=== PATIENT | male | born 1955 | race Caucasian/White ===

== ENCOUNTER 2020-04-30 10:49 | Inpatient (IN) ==
--- NOTE | 2020-04-07 15:01 | PAT Medication Instructions ---
Medication Instructions Date of Service April 07, 2020 Home Medications ascorbic acid (vitamin C) 1,000 mg tablet 1 gm PO TID multivitamin 1 tab PO QAM DO NOT take the morning of surgery ascorbic acid (vitamin C) 1,000 mg tablet 1 gm PO TID multivitamin 1 tab PO QAM Other Notes If you have any questions please call us at [phone] or [phone] or [phone] or [phone]
--- NOTE | 2020-04-08 12:27 | Anesthesiology Consultation ---
Date of Service April 08, 2020 Assessment & Plan (1) Encounter for pre-operative examination: COVID Status: As of 04/08 assessment, patient denies travel to endemic area, known exposure/sick contacts, or symptoms of COVID19. Patient instructed that they and their household members must follow strict social distancing guidelines, wear a mask in public and avoid travel for 14 days prior to surgery. Preoperative COVID19 testing to be completed prior to surgery per surgeon's a rrangements. Patient made aware to self-isolate as much as possible between COVID testing and surgery. Chart Review Chart Review: Acceptable Risk for Surgery (pending surgeon ordered PCP clearance) and Patient seen in Pre Admission Testing Teaching & Discussion Instructed NPO after midnight before surgery, except medications with 15 cc of water. Medication instructions provided according to the PAT guidelines. History Surgery Operation Date: 04/30/20 08:40 Proposed Procedures p Left Total Shoulder Arthroplasty - Shailesh Aiken MD Height/Weight Height: 5 ft 11 in Weight: 91.7 kg Allergies Allergy/AdvReac Type Severity Reaction Status Date / Time No Known Allergies Allergy Verified 04/03/20 16:09 Medications Home Medications Medication Instructions Recorded Confirmed Last Taken ascorbic acid (vitamin C) 1,000 mg 1 gm PO TID tab 01/07/20 04/03/20 Unknown tablet multivitamin 1 tab PO QAM 01/07/20 04/03/20 Unknown Past Medical History Medical History Hearing loss Osteoarthritis of shoulders, bilateral Exercise / Class Metabolic Activity II 4-5 Yardwork/Stairs/Walk up hill Past Family History Family History Brother Lymphoma Father Heart disease Past Surgical History Surgical History H/O colonoscopy History of surgery on arm left- A CHILD FOR FRACTURE Past Anesthesia History No Hx of Anesthesia Complications and No Family Hx of Anesthesia Complications History of PONV No Hx of PONV and No Hx of Motion Sickness Social History Smoking Status: Never smoker Do You Dip or Chew Tobacco: No Hx Alcohol Use: Yes Alcohol type: beer and wine alcohol intake frequency: a few times a week Hx Substance Use: No Review of Systems Pt denies any recent chest pain, shortness of breath, palpitations, cough, fever, URI, or uncontrolled acid reflux. Physical Exam Vital Signs BP: 100/69 P: 76bpm SPO2: 97% RA T: 98.0 F R: 16 ENMT Mouth: no dental restorations, no chipped teeth and no loose teeth Thyromental Distance: > or= 3.5 Finger Breadths Mallampati Class: I Neck normal visual inspection; neck extension not limited Respiratory normal respiratory effort Auscultation: lungs clear to auscultation bilaterally Cardiovascular Rate/Rhythm: regular rate and regular rhythm Heart Sounds: no murmur Vessels: no carotid bruit Testing Laboratory Results 04/08/20 12:35 04/08/20 12:35 PT 10.9 Seconds (9.0-12.0) 04/08/20 12:35 INR 1.0 (0.9-1.1) 04/08/20 12:35 APTT 26.2 Seconds (21.0-31.0) 04/08/20 12:35 Hemoglobin A1c 4.8 % (4.5-5.6) 04/08/20 12:35 Urine Color Yellow 04/08/20 12:35 Urine Appearance Clear (Clear) 04/08/20 12:35 Urine pH 5.0 (4.5-7.5) 04/08/20 12:35 Ur Specific Wilson 1.022 (1.000-1.030) 04/08/20 12:35 Urine Protein Negative (Negative) 04/08/20 12:35 Urine Glucose (UA) Negative (Negative) 04/08/20 12:35 Urine Ketones Trace (Negative) H 04/08/20 12:35 Urine Nitrite Negative (Negative) 04/08/20 12:35 Ur Leukocyte Esterase Negative (Negative) 04/08/20 12:35 Blood Type A Positive 04/08/20 12:35 Antibody Screen NEGATIVE 04/08/20 12:35 Electrocardiogram Date: 04/08/20 Findings: + NSR @ (62bpm) *unconfirmed Chest X-Ray Date: 04/08/20 Findings: + NAD
--- NOTE | 2020-04-08 13:09 | XRay Report ---
XR chest Pre-admission PA/Lat CLINICAL HISTORY: Preoperative chest COMPARISON STUDY: No previous studies for comparison. FINDINGS: The cardiac and mediastinal contours are normal. There is no evidence of focal pulmonary co nsolidation. There is no evidence of failure. No pleural effusions are visualized.[ IMPRESSION: No active disease in the chest. ACT 112: Negative or not required by law. Electronically signed by: Randy Kirby M.D. 04/08/2020 1:08 PM
[2020-04-08 14:12] LABS: Appearance Urine Clear (Clear); Bilirubin Urine Negative (Negative); Blood Urine Negative (Negative); Color Urine Yellow; Glucose Urine UA Negative (Negative); Ketones Urine Trace (Negative); Leukocyte Esterase Urine Negative (Negative); Nitrite Urine Negative (Negative); Protein Urine Negative (Negative); Specific Gravity Urine 1.022 (1.000-1.030); Urobilinogen Urine Negative (Negative)
[2020-04-08 14:16] LABS: Basophils # (auto) 0.02 K/uL (0-0.2); Basophils % (auto) 0.3 %; Eosinophils # (auto) 0.11 K/uL (0-0.5); Eosinophils % (auto) 1.6 %; Estimated Average Glucose 91 mg/dl; Hemoglobin 15.2 g/dL (14.0-18.0); Hemoglobin A1C 4.8 % (4.5-5.6); Immature Granulocytes # (auto) 0.03 K/uL (0.00-0.02); Immature Granulocytes % (auto) 0.4 %; Lymphocytes % (auto) 28.4 %; Mean Corpuscular Hemoglobin 31.9 pg (25-34); Mean Corpuscular Hgb Conc 35.3 g/dL (32-36); Mean Corpuscular Volume 90.1 fL (80-100); Mean Platelet Volume 11.3 fL (7.4-10.4); Monocytes # (auto) 0.58 K/uL (0.11-0.59); Monocytes % (auto) 8.7 %; Neutrophils # (auto) 4.04 K/uL (1.4-6.5); Neutrophils % (auto) 60.6 %; Platelet Count 167 K/uL (130-400); RDW Coefficient of Variation 13.5 % (11.5-14.5); RDW Standard Deviation 44.4 fL (36.4-46.3); Red Blood Count 4.77 M/uL (4.7-6.1); White Blood Count 6.68 K/uL (4.8-10.8)
[2020-04-08 14:20] LABS: Albumin Level 3.8 gm/dl (3.4-5.0); BUN Creatinine Ratio 20.1 (10-20); Calcium 9.4 mg/dl (8.5-10.1); Creatinine Clr Calc Pharmacy 84.7 ml/min; Est GFR (African American) 89.6; Est GFR (Non-African American) 77.3
[2020-04-08 14:30] LABS: Partial Thromboplastin Ratio 0.9; Partial Thromboplastin Time 26.2 Seconds (21.0-31.0); Prothrombin Time 10.9 Seconds (9.0-12.0)
--- NOTE | 2020-04-09 14:17 | Electrocardiogram Report ---
Test Reason : Blood Pressure : / mmHG Vent. Rate : 062 BPM Atrial Rate : 062 BPM P-R Int : 194 ms QRS Dur : 098 ms QT Int : 376 ms P-R-T Axes : 041 033 034 degrees QTc Int : 381 ms Normal sinus rhythm Normal ECG No previous ECGs available Confirmed by Jose Alfredo Poe ([id number]) on 04/09/2020 2:17:21 PM Referred By: Shailesh Aiken Confirmed By:Jose Alfredo Poe
--- NOTE | 2020-04-29 20:41 | History and Physical Report ---
DATE OF ADMISSION: 04/30/2020 CHIEF COMPLAINT: Chronic left shoulder pain. HISTORY OF PRESENT ILLNESS: This is a 65-year-old male patient of Dr. Aiken'lily complaining of chronic left shoulder pain, longstanding, now progressively getting worse since July of 2019. He reports no trauma, but he has failed conservative treatment including intra-articular injections. MRI was completed to confirm no rotator cuff arthropathy. The patient wished to proceed with a left total shoulder arthroplasty. PAST MEDICAL HISTORY: The patient is a healthy 65-year-old male. He has no heart problems, lung problems, diabetes, or cancer history. SOCIAL HISTORY: Nonsmoker, nondrinker. FAMILY HISTORY: Noncontributory. REVIEW OF SYSTEMS: Chronic left shoulder pain. Otherwise, denies any shortness of breath, chest pain, nausea, vomiting, or any joint complaint. PAST SURGICAL HISTORY: Negative. MEDICATIONS: A multivitamin and vitamin C daily. ALLERGIES: No known drug allergies. PHYSICAL EXAMINATION: GENERAL: Well-developed, well-nourished 65-year-old male in no acute distress. He is alert and oriented x3 and pleasant. HEENT: Normocephalic, atraumatic. Extraocular motions are intact. Pupils are equal and reactive to light. HEART: Regular rate and rhythm, no murmurs. LUNGS: Clear. ABDOMEN: Soft, nontender, bowel sounds present. EXTREMITIES: Left shoulder, he has 5/5 strength with pain and crepitation. Active range of motion 0-90, passive range of motion 0-120. Neurologically and neurovascularly, he is intact in his left upper extremity. DIAGNOSIS: Left shoulder end-stage osteoarthritis. PLAN: The patient was advised of his diagnosis. Indications, risks, benefits, postop course have all been reviewed. The patient wished to proceed with a left total shoulder arthroplasty. Necessary consent forms, preoperative testing, and clearances will be obtained.
[~2020-04-30 10:49] MED LIST: ACETAMINOPHEN 500 MG TAB PO SCH; BUPIVACAINE/EPINEPHRINE 0.25% 1:200,000 30 ML VIAL ONE; CeleBREX 200 MG CAP PO SCH; FAMOTIDINE 20 MG TAB PO SCH; GABAPENTIN 600 MG DOSE PO SCH; LIDOCAINE HCL 2% 2 ML VIAL/AMP(20MG/ML) INFIL ONE; LR 15ML/HR IV SCH; MIDAZOLAM HCL 1 MG/ML 2ML VIAL ONE; ONDANSETRON INJ 2 MG/ML 2 ML VIAL ONE; PROPOFOL IV EMULSION 10 MG/ML 20 ML VIAL IV ONE; ROCURONIUM BROMIDE 10 MG/ML 5 ML VIAL IV ONE; ceFAZolin 2000MG 2,000 MG/15 ML SYR IV SCH; dexAMETHasone 4 MG TAB PO SCH; fentaNYL citrate 100 MCG/2 ML VIAL ONE; oxyCODONE HCL 10 MG TABCR (OxyCONTIN) PO SCH
[2020-04-30] MEDS ORDERED: BACITRACIN INJ 50,000 UNIT VIAL ONE (11:03)
[2020-04-30] MEDS ORDERED: EpINEphrine HCL INJ 1 MG/ML 1ML SYRINGE ONE ×2 (11:07→14:32)
[2020-04-30] MEDS ORDERED: ONDANSETRON INJ 2 MG/ML 2 ML VIAL IV PRN ×2 (12:35→17:09)
[2020-04-30] MEDS ORDERED: ePHEDrine sulfate 50 MG/ML AMP IV PRN (12:35)
[2020-04-30] MEDS ORDERED: HYDROmorphone INJ 2 MG/ML SYR/VIAL IV PRN (12:35)
[2020-04-30] MEDS ORDERED: ATROPINE SULFATE 0.1 MG/ML 10ML SYR IV PRN (12:35)
[2020-04-30] MEDS ORDERED: fentaNYL citrate 100 MCG/2 ML VIAL IV PRN (12:35)
--- NOTE | 2020-04-30 12:52 | History & Physical Bridge Note ---
Date of Service April 30, 2020 History & Physical Bridge Note I have examined the patient, reviewed the History & Physical and in the interval since the performance of the History & Physical I have noted the following changes of clinical significance: no changes noted
[2020-04-30] MEDS ORDERED: GLYCOPYRROLATE 0.2 MG/ML VIAL ONE (15:44)
[2020-04-30] MEDS ORDERED: NEOSTIGMINE METHYLSULFATE 5 MG/5 ML SYR ONE (15:44)
--- NOTE | 2020-04-30 16:08 | Operative Report ---
Post Operative Report Pre & Post Diagnosis Operation Date: 04/30/20 12:50 Pre-Op Diagnosis: Left Shoulder Osteoarthritis glenohumeral joint Post-Op Diagnosis: Left Shoulder Osteoarthritis glenohumeral joint, biceps tendinopathy; posterior shoulder instability I identified the patient and participated in the time-out.: Yes Procedure Operation Date: 04/30/20 12:50 Actual Procedures p Left Total Shoulder Arthroplasty posterior capsular plication; biceps tendondesis(Left) - Shailesh Aiken MD Surgeon Shailesh Aiken MD Elevator Attendant ELAN Escobedo Estimated Blood Loss 100 Findings Consistent with Post-Op Diagnosis Specimens Humeral head Drains 2 Hemovac Anesthesia Type General Regional Complications none Disposition Accompanied Patient To Recovery: No Disposition: Recovery Room Indications 65-year-old male with chronic severe glenohumeral osteoarthritis with large inferior osteophytes [id number] glenohumeral joint. Patient has intact rotator cuff. Description of Procedure The patient was taken to the operating room and anesthetized under a general and regional block anesthesia. A towel roll was placed under the medial border of the scapula of the left shoulder. The patient's head was placed on a foam headrest and protective eyewear was placed and the extremities were well padded. The arm was draped free in order to manipulate the shoulder as necessary. The shoulder exam demonstrated limited range of motion with 120 degrees flexion 70 degrees abduction 30 degrees external rotation. The shoulder was sterilely prepped and draped in the usual sterile fashion. An anterior deltopectoral approach was performed. A longitudinal incision was made in the interval. The skin was incised sharply and subcutaneous tissues dissected down to the fascia. The cephalic vein was identified and retracted laterally with the deltoid. Any crossing veins were tied off with silk ties and divided. The clavipectoral fascia was divided at the lateral margin of the conjoined tendon and divided up to the level of the coracoacromial ligament which was preserved. The upper 1 cm of the pectoralis was released for inferior exposure. The biceps tendon findings demonstrated chronic tenosynovitis around the biceps tendon. Biceps tendon was still intact.. The rotator cuff tendon findings demonstrated normal intact rotator cuff. Patient had a large humeral head and substantial large subscapularis tendon. The circumflex vessels were identified and tied off with silk ties and divided laterally. The fibers and subscapularis were split longitudinally at the level of the circumflex vessels down to the capsule and then reflected off the inferior capsule using a Kitner elevator. The axillary nerve was identified with a tug test and protected with a blunt Ralf retractor. The rotator interval was opened up and extended down to the glenoid. The biceps tendon was identified and tenodesed to the pectoralis tendon with [id number] #2 FiberWire sutures in the proximal biceps was resected. The subscapularis tendon was taken down with a trans-tendinous incision leaving a cuff of tissue for repair on the lesser tuberosity. The incision was carried down to the tendon and the capsule and a #1 Vicryl suture was placed into the free end of the subscapularis tendon. The capsule was subperiosteally dissected off the inferior neck of the humerus exposing the humeral osteophytes which demonstrated very large inferior humeral osteophytes and large osteophytes extending down onto the neck of the humerus. The osteophytes and from anterior to posterior through the inferior aspect but there are also some superior osteophytes noted.. The osteophytes were excised with an artist chisel and a rongeur. The capsular release along the inferior neck of the humerus was completed. The humerus was then retracted posterior to the glenoid with a Fukuda retractor. The remainder of the biceps tendon and labrum was resected. The glenoid findings demonstrated concentric wear grade 4 osteoarthritis. I did an anterior inferior and posterior inferior release with electrocautery on bone and a Mason elevator with the axillary nerve continuing to be protected with the blunt Hohmann retractor inferiorly. When the releases were completed and the humeral head was exposed with some extension and external rotation and in anatomic head cut was made using the oscillating saw. The Tornier simplicity total shoulder arthroplasty was used including the Cortiloc pegged polyethylene glenoid component. Attention was first taken to preparation of the humerus.the humerus was sized for a 52 diameter humeral head. The central drill pin was placed. The surface reamer was used followed by the central reamer for the boss of the nucleus. The Natalya broach was used to prepare the humerus and this was left slightly proud and the cut protector was placed. The humerus was then retracted posterior to the glenoid using a Bankart retractor anteriorly and blunt Ralf and posterior Tornier glenoid retractor. A central drill hole was made into the glenoid. The glenoid was sized for a size medium 35 radius Cortiloc pegged component. The glenoid was reamed and the central drill widened and the guide for the 3 peripheral peg holes was placed in the peg holes were drilled and a trial component was placed with a tight fit. The trial was removed and the glenoid was irrigated with pulsatile lavage antibiotic solution and the drill holes were dried and packed with epinephrine-soaked tampons for hemostasis. The Palacos G cement was vacuum mixed. The final component was cemented into position and held in position with pressure until the cement cured. A humeral head trial 52 x 19 was placed. A trial reduction was performed and the shoulder was unstable posteriorly so we used a soft tissue balancing had 52 x 23 but there was still posterior subluxation with flexion and adduction. The trial head was removed and retractors were placed exposing the posterior capsule. #1 Vicryl plication sutures were placed in the posterior capsule to tighten the posterior capsule and with [id number] type sutures. The cut protector with nucleus broach were removed. 3 drill holes were made into the hard bone in the bicipital groove lateral to the lesser tuberosity and 3 #5 FiberWire transosseous sutures were placed for repair of the subscapularis. The repaired humeral surface was copiously irrigated. There is a few osteoporotic areas related to some subchondral cysts which were bone grafted with cancellus bone graft harvested from the humeral head. The simplicity nucleus size 3 was partially inserted and some bone graft was placed around it to enhance fixation and then the nucleus was impacted leaving about 3 mm proud. The simplicity humeral head 52 x 23 mm was then placed into the Morton taper of the nucleus and then the entire construct impacted down to make good contact with the humerus cut. The implant was assessed to be stable. The humerus was reduced to the glenoid and stability verified. With posterior shuck there was less than 50% translation and of the posterior shoulder was stable with rotation in the plane the glenoid. The subscapularis was repaired with the #5 FiberWire sutures in a Dmitriy-Vadim suture technique and lateral row fixation with figur e-of-eight #2 FiberWire in the soft tissue. The rotator interval was closed and maximal external rotation. The pectoralis was then closed with [id number] #2 FiberWire suture. The sutures were passed through the biceps tendon as well to reinforce the biceps tenodesis. Range of motion was assessed with the repair being stable through 120 degrees of flexion 30 degrees of external rotation and 90 degrees of abduction without any tension on repair. 2 Hemovac drains were placed. The deltopectoral interval was closed with donqzb-bu-clmay #1 Vicryl sutures. The subcutaneous tissues were closed with interrupted 2-0 Vicryl and the skin was closed with dejuan and a sterile dressing was applied. The patient tolerated the procedure well. ELAN Escobedo my physician tmd teacher assistant, assisted in soft tissue retraction instrument management suture management and assisted in the subcutaneous and skin closure and will participate in the postoperative care the patient. I attest to the content of the Intraoperative Record and any orders documented therein. Any exceptions are noted below.
--- NOTE | 2020-04-30 16:19 | XRay Report ---
XR shoulder LT min 2V routine CLINICAL HISTORY: Post shoulder surgery COMPARISON: None. DISCUSSION: There are postsurgical changes of a total left shoulder arthroplasty. There is no disloca tion. Overlying skin dejuan and surgical drains are evident. There are left basilar airspace opaciti es likely atelectatic IMPRESSION: Postsurgical changes of a total left shoulder arthroplasty. No evidence of dislocation. ACT 112: Negative or not required by law. Electronically signed by: Randy Kirby M.D. 04/30/2020 4:18 PM
--- NOTE | 2020-04-30 16:34 | Anesthesiology Progress Note ---
Date of Service April 30, 2020 Anesthesia Post Procedure Vital Signs Vital Signs: Temp Pulse Pulse Resp BP BP Pulse Ox 04/30/20 16:30 88 16 121/76 96 04/30/20 16:20 68 18 120/70 98 04/30/20 16:10 60 16 113/66 99 04/30/20 16:03 36.1 C L 67 12 117/70 99 04/30/20 12:14 36.8 C 62 18 117/77 100 04/30/20 11:21 36.8 C 59 L 18 128/76 100 Transfer of Care Handoff Completed per policy Notes Mental Status: alert / awake / arousable and participated in evaluation Patient Amnestic to Procedure: Yes Nausea / Vomiting: adequately controlled Pain: adequately controlled Airway Patency, RR, SpO2: stable & adequate BP & HR: stable & adequate Hydration State: stable & adequate Anesthetic Complications: no major complications apparent and Pt Satisfied with anesthetic care
[2020-04-30] MEDS ORDERED: NALOXONE HCL 0.4 MG/1 ML VIAL/CARP IV PRN (17:09)
[2020-04-30] MEDS ORDERED: bisacodyL 10 MG SUPP PR PRN (17:09)
[2020-04-30] MEDS ORDERED: HYDROmorphone INJ 0.5 MG/0.5 ML SYR IV PRN (17:09)
[2020-04-30] MEDS ORDERED: MAGNESIUM HYDROXIDE SUSP 30 ML UDC PO PRN (17:09)
[2020-04-30] MEDS ORDERED: SODIUM CHLORIDE 0.9% 1000ML 1,000 ML IV SCH (17:09)
[2020-04-30] MEDS ORDERED: diphenhydrAMINE Capsule 25 MG CAP PO PRN (17:09)
[2020-04-30] MEDS ORDERED: oxyCODONE HCL IR 5 MG TAB (IMMEDIATE RELEASE) PO PRN (17:09)
[2020-04-30] MEDS: ceFAZolin 2000MG 2,000 MG/15 ML SYR IV SCH (19:33)
[2020-04-30] MEDS: ASPIRIN 81 MG ECTAB PO SCH (20:33)
[2020-04-30] MEDS: ACETAMINOPHEN 500 MG TAB PO SCH (20:34)
[2020-04-30] MEDS: DOCUSATE SODIUM 100 MG CAP PO SCH (20:34)
[2020-04-30] MEDS: ASCORBIC ACID 500 MG TAB PO SCH (20:34)
[2020-04-30] MEDS ORDERED: SENNA 8.6 MG TAB PO SCH (21:00)
[2020-05-01] MEDS: ceFAZolin 2000MG 2,000 MG/15 ML SYR IV SCH (03:35)
[2020-05-01] MEDS: ACETAMINOPHEN 500 MG TAB PO SCH ×2 (05:51→13:40)
[2020-05-01 06:13] LABS: Basophils # (auto) 0.01 K/uL (0-0.2); Basophils % (auto) 0.1 %; Hematocrit (blood only) 39.6 % (42-52); Hemoglobin 13.5 g/dL (14.0-18.0); Immature Granulocytes # (auto) 0.03 K/uL (0.00-0.02); Immature Granulocytes % (auto) 0.3 %; Lymphocytes # (auto) 1.03 K/uL (1.2-3.4); Lymphocytes % (auto) 9.4 %; Mean Corpuscular Hemoglobin 31.5 pg (25-34); Mean Corpuscular Hgb Conc 34.1 g/dL (32-36); Mean Corpuscular Volume 92.5 fL (80-100); Mean Platelet Volume 11.1 fL (7.4-10.4); Monocytes # (auto) 0.89 K/uL (0.11-0.59); Monocytes % (auto) 8.2 %; Neutrophils # (auto) 8.96 K/uL (1.4-6.5); Platelet Count 170 K/uL (130-400); RDW Coefficient of Variation 13.7 % (11.5-14.5); RDW Standard Deviation 46.2 fL (36.4-46.3); Red Blood Count 4.28 M/uL (4.7-6.1); White Blood Count 10.92 K/uL (4.8-10.8)
[2020-05-01 06:37] LABS: BUN Creatinine Ratio 15.7 (10-20); Calcium 8.9 mg/dl (8.5-10.1); Creatinine Clr Calc Pharmacy 80.4 ml/min; Est GFR (African American) 84.6; Potassium 4.1 mmol/L (3.5-5.1)
--- NOTE | 2020-05-01 08:22 | Orthopedic Progress Note ---
Date of Service May 01, 2020 Assessment & Plan (1) Arthritis of shoulder region, left, degenerative: POD #1, Left TSA, Biceps Tenodesis, Post. Caps Plication. NO PT. May loosen sling for elbow, wrist, hand motion only. ASA for DVT proph. D/C today after 1500 if pain controlled on orals and ambulating well. Admission and Anticipated Discharge Date Admission Date: April 30, 2020 Subjective POD #1, Doing well. Denies SOB, CP, N/V, Dizziness. Pain controlled well. Drain output just 185 cc's. Physical Exam Physical Exam: Left shoulder dressings c/d/i, no drainage. Fingers mobile. Sling in tact. A&Ox3. VSS. Results & Data ([facility]) Vital Signs (Past 12 Hours) Vital Signs Temp Pulse Resp BP Pulse Ox 05/01/20 07:25 36.6 C 71 16 106/66 98 05/01/20 02:44 36.6 C 58 L 16 137/70 98 04/30/20 22:50 36.5 C 73 16 100/72 95
[2020-05-01] MEDS: DOCUSATE SODIUM 100 MG CAP PO SCH (08:46)
[2020-05-01] MEDS: ASCORBIC ACID 500 MG TAB PO SCH ×2 (08:46→13:42)
[2020-05-01] MEDS: ASPIRIN 81 MG ECTAB PO SCH (08:46)
[2020-05-01] MEDS ORDERED: MULTIVITAMIN TAB PO SCH ×2 (09:00)
== END 2020-05-01 15:07 | disposition home or self-care (01) | DRG 483 ==
LOC: ASU 10:49 → 3E 16:07